=== PATIENT | male | born 1965 | race African-American/Black ===

== ENCOUNTER 2016-07-12 20:25 | Emergency (ER) | payer OTHER ==
[~2016-07-12] VITALS: Ht 180.3 cm; Wt 77.0 kg
[~2016-07-12 20:25] MED LIST: LIDODERM 5% P1 PATCH TD; MUCINEX D ER T1 EAC1 PO; NAPROSYN500 MG PO; NAPROXEN500 MG PO; NOHOMEMEDS; NORCO 7.5/321 TABLET PO; PREDNISONE20 MG PO; VALIUM2 MG PO; VENTOLIN HFA18 GM IH
[2016-07-12 21:31] LABS: HEMATOCRIT 39.5 % (38.0-50.0); MCH 27.7 PG (29.0-34.0); MCHC 31.9 G/DL (30.0-36.0); MCV 86.8 FL (86-99); RBC DIS.WIDTH-CV 14.3 % (11.8-14.6); RBC DIS.WIDTH-SD 45.4 % (39-53); RED BLOOD COUNT 4.55 M/uL (4.00-5.50); WHITE BLOOD COUNT 5.6 K/uL (4.1-10.2)
[2016-07-12 21:32] LABS: MEAN PLAT.VOLUME 10.2 uM^3 (9.0-12.4); PLATELET COUNT 341 K/uL (156-360)
[2016-07-12 21:44] LABS: CHLORIDE 108 mEq/L (99-109); POTASSIUM 4.2 mEq/L (3.7-5.4); SODIUM 142 mEq/L (136-147)
[2016-07-12 21:45] LABS: GLUCOSE 114 mg/dL (70-99)
[2016-07-12 21:47] LABS: ANION GAP 8 MEQ/L (2-14)
[2016-07-12 21:49] LABS: GFR ESTIMATE (CALCULATED) > 59 mL/min/
[2016-07-12 21:50] LABS: UREA NITROGEN (BUN) 12 mg/dL (9-23)
[2016-07-12 22:17] LABS: ADD MIUA? YES; BILIRUBIN NEGATIVE; BLOOD LARGE; COLOR RED ((YELLOW)); GLUCOSE (STRIP) NEGATIVE; KETONES NEGATIVE; LEUKOCYTES NEGATIVE; NITRITE NEGATIVE; PROTEIN (STRIP) 100; SPECIFIC GRAVITY 1.029 (1.000-1.030); UROBILINOGEN 0.2 MG/DL (0.2-1.0)
[2016-07-12 22:19] LABS: BACTERIA NONE SEEN /HPF; CASTS NONE SEEN /LPF; EPITHELIAL CELLS NONE SEEN /HPF; MUCUS NONE SEEN /LPF; RED BLOOD CELLS TNTC /HPF (0-5); UCUL ADDED? NO; WHITE BLOOD CELLS NONE SEEN /HPF (0-5)
[2016-07-12 22:20] LABS: AMORPHOUS URATES CRYSTALS 1+; CRYSTALS PRESENT
[2016-07-13 02:35] VITALS: BP 136/78
== END 2016-07-13 02:36 | disposition home or self-care (01) ==
LOC: EME 20:25
DX: R31.9 Hematuria, unspecified (principal); F17.200 Nicotine dependence, unspecified, uncomplicated
CPT/HCPCS: 74176; 80048; 81003; 85027; 99281; 99284

== ENCOUNTER 2016-10-01 19:36 | Emergency (ER) | payer OTHER ==
[~2016-10-01] VITALS: Ht 180.3 cm; Wt 78.6 kg
[2016-10-01] MEDS ORDERED: VALIUM5 MG PO (20:39)
[2016-10-01] MEDS ORDERED: MEDROL DOSEPAK4 MG PO (20:39)
[2016-10-01] MEDS ORDERED: PERCOCET 5/31 TABLET PO (20:39)
[2016-10-01 20:58] VITALS: BP 122/77
== END 2016-10-01 20:58 | disposition home or self-care (01) ==
LOC: EME 19:36
DX: M54.5 Low back pain (principal); M62.830 Muscle spasm of back; F17.200 Nicotine dependence, unspecified, uncomplicated
CPT/HCPCS: 99281; 99284; J1885

== ENCOUNTER 2017-05-14 18:49 | Emergency (ER) | payer OTHER ==
[~2017-05-14] VITALS: Ht 177.8 cm; Wt 77.8 kg
[~2017-05-14 18:49] MED LIST changes: +MEDROL DOSEPAK4 MG PO; +PERCOCET 5/31 TABLET PO; +VALIUM5 MG PO
[2017-05-14 19:56] LABS: HEMATOCRIT 34.4 % (38.0-50.0); HEMOGLOBIN 11.6 G/DL (12.5-16.6); MCH 29.2 PG (29.0-34.0); MCHC 33.7 G/DL (30.0-36.0); MCV 86.6 FL (86-99); PLATELET COUNT 216 K/uL (156-360); RBC DIS.WIDTH-CV 14.3 % (11.8-14.6); RBC DIS.WIDTH-SD 45.9 % (39-53); RED BLOOD COUNT 3.97 M/uL (4.00-5.50); WHITE BLOOD COUNT 8.5 K/uL (4.1-10.2)
[2017-05-14 20:05] LABS: CHLORIDE 108 mEq/L (99-109); POTASSIUM 3.6 mEq/L (3.7-5.4); SODIUM 141 mEq/L (136-147)
[2017-05-14 20:07] LABS: GLUCOSE 113 mg/dL (70-99)
[2017-05-14 20:10] LABS: SERUM ETHYL ALCOHOL < 10 mg/dL
[2017-05-14 20:11] LABS: CREATININE 0.8 mg/dL (0.6-1.3); GFR ESTIMATE (CALCULATED) > 59 mL/min/ (58.99-99999); UREA NITROGEN (BUN) 7 mg/dL (9-23)
[2017-05-14] MEDS ORDERED: PERCOCET 5/31 TABLET PO (21:19)
[2017-05-14 21:56] VITALS: BP 140/66
== END 2017-05-14 21:57 | disposition home or self-care (01) ==
LOC: EME → EDBD 18:49 → EDSEX 18:49 → EME 21:57
PROVIDERS: Emergency Medicine
DX: S00.03XA Contusion of scalp, initial encounter (principal); W00.1XXA Fall from stairs and steps due to ice and snow, initial encounter; Y93.H1 Activity, digging, shoveling and raking; F17.200 Nicotine dependence, unspecified, uncomplicated
CPT/HCPCS: 70450; 70486; 72125; 80048; 85027; 99281; 99284; G0480; J2270; J2405; J3010